=== PATIENT | female | born 1985 | race Caucasian/White ===

== ENCOUNTER 2025-04-04 20:56 | Emergency (ER) | payer OTHER, SELFPAY ==
[2025-04-04 21:01] VITALS: BP 120/84
--- NOTE | 2025-04-04 21:19 | ED.GENMED ---
History of Present Illness
General
Chief Complaint: Fatigue
Source: patient and police
Exam Limitations: none
Time Seen by Provider: 04/04/25 21:11
Nursing documentation reviewed up to this point in time: agreed with
History of Present Illness
History of Present Illness:
The patient is a 40-year-old female with a past medical history of schizophrenia, substance abuse, depression, and anxiety who was brought in for medical clearance by police. Patient reports she feels tired and is under a lot of stress. Police
report that she had been drinking alcohol heavily and vomited 1 time in the car. Patient denies nausea and abdominal pain to me. Patient tells me that she was recently prescribed Macrobid for urinary tract infection. She she reports she is due
for Macrobid, Zyprexa, and Ativan. When asking her if she takes any medication for seizure she told me no. Patient denies fevers and chills.
Past History
Past History
ED Past Medical History: Psychiatric (Anxiety, depression, schizophrenia, substance abuse, suicide attempt), Other (L2 partial spinal cord injury , urinary and bowel incontinence. Frequent UTIs, osteomyelitis, left ischial decubitus ulcer, left BKA)
and Other (Left buttock decubitus ulcer with seroma 11/2019)
ED Past Surgical History: Orthopedic (Left BKA)
Social History
Tobacco: Other
Alcohol: Other
Drug: None and Other
Personal: Other
Living: other (Lives in prison)
Employment: Not employed
Family History
Family History: Other (Noncontributory)
Review of Systems
Review of Systems
Allergies reviewed?: Yes
All Other Systems: ROS reviewed and negative except as documented in HPI and ROS
Constitutional: Reports fatigue
EENT: Reports no symptoms
Respiratory: Reports no symptoms
Cardiac: Reports no symptoms
ABD/GI: Reports vomiting
: Reports no symptoms
Musculoskeletal: Reports no symptoms
Skin: Reports no symptoms
Neurological: Reports no symptoms
Endocrine: Reports no symptoms
Hematologic/Lymphatic: Reports no symptoms
Psychiatric: Reports anxiety
Phy Exam
Physical Exam
Physical Exam:
Physical Exam
General: Patient appears to be resting comfortably on her side. Fully awake, alert. Atraumatic appearing face and head
Neck: supple. no meningeal signs. normal psoterior pharynx
Heart: s1/s2 regular rate and rhythm, no murmur. equal radial pulses.
Lungs: no acute respiratory distress. clear bilaterally
Abdomen: Soft and nontender throughout
Neuro: alert and oriented. no focal neurological deficits
Skin: no rash
Psychiatric: Guarded affect but generally cooperative
Extremities: no edema. Chronic left BKA
Course
Orders/Labs/Results
Orders:
Orders
04/04/25 21:19
Nitrofurantoin Monohydrate [Macrobid] 100 mg PO NOW STA
04/04/25 21:27
Olanzapine [Zyprexa] 10 mg PO NOW STA
Vital Signs
Initial and Last Documented VS:
Initial Vital Signs
Temp Pulse Resp BP Pulse Ox
98.2 F 89 16 120/84 98
04/04/25 21:01 04/04/25 21:01 04/04/25 21:01 04/04/25 21:01 04/04/25 21:01
Last Documented Vital Signs
Temp Pulse Resp BP Pulse Ox
98.2 F 89 16 120/84 98
04/04/25 21:01 04/04/25 21:01 04/04/25 21:01 04/04/25 21:01 04/04/25 21:22
MDM/Problems Addressed
Differential Diagnosis Includes:
Acute dehydration, acute UTI, acute intoxication
MDM/Problems Addressed:
Patient presents with complaints of acute fatigue and stress after being arrested
Chronic conditions affecting care:
History of frequent UTIs
*Pulse Oximetry
SaO2: 98
Oxygen Mode of Delivery: Room air
Patient hypoxic: no
Comment: Patient is 98% on room air
*EKG
Interpreted by ED Provider?: NA
*Distribution Engineering Technologist Interpretation
Rate: Distribution Engineering Technologist- N/A
*Critical Care Note
Total Time (30-74mins, 75-104mins- exclusive of procedures): Not Applicable
Data Reviewed
Review of Other/Old Records Reveals: Progress Notes (Dr. Flaherty's progress note reviewed by me. Discusses that patient had stage V left ischial decubitus ulcer)
Source: patient and other (Police officers)
Patient Management
Social determinants of health affecting care: Substance abuse
Escalation/DeEscalation of care consider admission/obs:
Patient is afebrile. She appears calm in no acute distress. Patient has had no further nausea or vomiting in the ED. She is drinking fluids without difficulty. Given she is telling me that she recently started Macrobid for an acute UTI, I will
give her a dose of Macrobid and prescribe her a course of Macrobid. She has no flank pain to suggest renal stone.
ED Attending Note
-
Portions of this chart may have been created with voice recognition software.� Occasional wrong word or��sound alike� substitutions may have occurred due to the inherent limitations of voice recognition software.
Discharge Plan
Departure
Patient Disposition: Home (Routine Discharge)
Date of Disposition: 04/04/25
Time of Disposition: 21:23
Patient with high blood pressure during this ER visit?: No
Condition: Good
Covid-19: Not Applicable
Discharge Problem:
Medical clearance for incarceration
Instructions: Urinary tract infections in adults
Prescriptions:
New
nitrofurantoin monohyd/m-cryst [Macrobid] 100 mg capsule
100 mg PO BID 5 Days Qty: 10 0RF
No Action
citalopram 20 MG tablet
10 mg PO HS
docusate sodium 100 MG capsule
100 mg PO HS
acetaminophen 325 MG tablet
650 mg PO Q6HPRN PRN (Reason: mild pain/fever)
atorvastatin 10 MG tablet
10 mg PO HS
olanzapine 5 MG tablet
15 mg PO HS
clonazepam 1 MG tablet
1 mg PO DAILY@1600
hydroxyzine pamoate [Vistaril] 50 MG capsule
50 mg PO TID@0800,1200,1600
temazepam 15 MG capsule
15 mg PO HS
gabapentin 300 MG capsule
300 mg PO TID@0800,1600,2000
collagenase clostridium histo. [Santyl] 1 APPLIC ointment
1 applic topical DAILY
sodium hypochlorite [Dakin's Solution] 473 ML solution
0 applic topical . DIRECTED
loperamide 2 MG capsule
2 mg PO PRN MDD 6 cap/24 hr PRN (Reason: loose stool)
polyethylene glycol 3350 17 GRAMS powder in packet
17 grams PO BID
dextromethorphan HBr [Scot-Tussin Diabetes] 10 MG/5 ML liquid
30 mg PO Q6HPRN PRN (Reason: cough)
nicotine 21 MG patch 24 hour
21 mg transdermal DAILY
cranberry fruit 400 MG capsule
400 mg PO DAILY
ergocalciferol (vitamin D2) 50,000 UNITS capsule
50,000 units PO TH
ibuprofen 600 MG tablet
600 mg PO Q6HPRN PRN (Reason: mild pain)
clonazepam 0.5 MG tablet
0.5 mg PO BIDPRN PRN (Reason: anxiety )
ibuprofen 600 MG tablet
600 mg PO Q6HPRN PRN (Reason: moderate pain )
Activity Restrictions/Additional Instructions:
Patient is medically cleared for incarceration. Please return with any persistent vomiting or any fever
Interventions
Interventions:
*Risk Screen - Suicide Last Done: 04/04/25 21:01
*General Assessment Last Done: 04/04/25 21:01
*Neglect/Abuse Screening Last Done: 04/04/25 21:01
*ED- Fall Risk Assessment Last Done: 04/04/25 21:01
*ED COVID-19 Vaccine History Last Done: 04/04/25 21:01
Discharge Date and Time
Print Language: CHINESE
[2025-04-04] MEDS: ZYPREXA 10 MG PO (21:43)
[2025-04-04] MEDS: MACROBID 100 MG PO (21:43)
== END 2025-04-04 21:53 | disposition home or self-care (01) ==
LOC: EMR 20:56
PROVIDERS: EMERGENCY PHYSICIAN Emergency Medicine; FAMILY PHYSICIAN Nurse Practitioner Gerontology
DX: Z02.89 Encounter for other administrative examinations (principal); F20.9 Schizophrenia, unspecified; F19.10 Other psychoactive substance abuse, uncomplicated; F41.8 Other specified anxiety disorders; Z65.3 Problems related to other legal circumstances; Z87.440 Personal history of urinary (tract) infections; Z89.512 Acquired absence of left leg below knee; Z91.51 Personal history of suicidal behavior
CPT/HCPCS: 99285